=== PATIENT | female | born 1945 | race Caucasian/White ===

== ENCOUNTER 2020-07-19 11:26 | Emergency (ER) | payer OTHER ==
[~2020-07-19] VITALS: Ht 152.4 cm; Wt 66.7 kg
[~2020-07-19 11:26] MED LIST: LISINOPRIL30 MG; NOVOLOG100 U/M1; SIMVASTATIN40 MG; SYNTHROID150 MCG
[2020-07-19] MEDS ORDERED: LOTREL 5-40 MG1 EACH PO (11:36)
[2020-07-19] MEDS ORDERED: CELEBREX200MG PO (13:18)
[2020-07-19] MEDS ORDERED: VOLTAREN100 GM TOP (13:18)
[2020-07-19] MEDS ORDERED: PERCOCET 5-3251 EACH PO (13:18)
[2020-07-19] MEDS ORDERED: SKELAXIN800 MG PO (13:18)
== END 2020-07-19 13:29 | disposition home or self-care (01) ==
LOC: ER 11:26
DX: M54.41 Lumbago with sciatica, right side (principal); M62.830 Muscle spasm of back

== ENCOUNTER 2022-11-12 11:15 | Emergency (ER) | payer OTHER ==
[~2022-11-12] VITALS: Ht 149.9 cm; Wt 61.7 kg
[~2022-11-12 11:15] MED LIST changes: +CELEBREX200MG PO; +LOTREL 5-40 MG1 EACH PO; +PERCOCET 5-3251 EACH PO; +SKELAXIN800 MG PO; +VOLTAREN100 GM TOP
== END 2022-11-12 13:36 | disposition home or self-care (01) ==
LOC: ER 11:15
DX: M54.42 Lumbago with sciatica, left side (principal); E11.9 Type 2 diabetes mellitus without complications; Z79.4 Long term (current) use of insulin; I10 Essential (primary) hypertension; E03.9 Hypothyroidism, unspecified; E78.00 Pure hypercholesterolemia, unspecified